=== PATIENT | female | born 1950 | race Caucasian/White ===

== ENCOUNTER → 2016-06-07 | Outpatient (CLI) | payer OTHER, MEDICARE ==
[~2016-06-07] MED LIST: CEFTIN250 MG PO; COZAAR100 MG PO; Flagyl500 M1 IV; HYDROCODONE BIT1 T11 PO; LEVOFLOXACIN500 MG PO; LEVOTHYROXIN0.088 MG PO; MASON NATURAL2000 IU PO; Micro K10 MEQ PO; Ondansetron4 MG PO; PRAVACHOL40 MG PO; VANCOCIN250 MG PO
[2016-06-07 09:14] LABS: EST GLOM FILT AFRICAN AMERICAN > 60 ml/min
== END | disposition home or self-care (01) ==
LOC: CT 08:32 → LAB 08:32 → CT 09:00
PROVIDERS: Radiology Diagnostic Radiology
DX: C54.1 Malignant neoplasm of endometrium (principal); Z90.710 Acquired absence of both cervix and uterus

== ENCOUNTER 2017-10-17 00:04 | Emergency (ER) | payer OTHER, MEDICARE ==
[~2017-10-17] VITALS: Ht 154.9 cm; Wt 55.8 kg
[2017-10-17 00:08] VITALS: BP 173/50
[2017-10-17] MEDS ORDERED: DOXYCYCLINE100 M3 PO (00:12)
== END 2017-10-17 00:18 | disposition home or self-care (01) ==
LOC: ED 00:04
DX: S70.361A Insect bite (nonvenomous), right thigh, initial encounter (principal); W57.XXXA Bitten or stung by nonvenomous insect and other nonvenomous arthropods, initial encounter; Y93.89 Activity, other specified; Y92.89 Other specified places as the place of occurrence of the external cause; Y99.8 Other external cause status

== ENCOUNTER → 2020-04-05 | Outpatient (CLI) | payer OTHER, MEDICARE ==
[~2020-04-05] MED LIST changes: +DOXYCYCLINE100 M3 PO
[2020-04-05 10:35] LABS: ALBUMIN 3.9 gm/dl (3.1-4.5); ALKALINE PHOSPHATASE 93 U/L (45-117); BASO % 0.4 % (0.0-1.0); BUN 12 mg/dl (7-24); CHLORIDE 108 mmol/L (98-107); CREATININE 0.93 mg/dL (0.55-1.02); EOS # 0.1 10*3/uL (0.0-0.4); EOS % 2.5 % (1.0-4.0); LYMPH # 1.8 10*3/uL (1.3-4.4); LYMPH % 35.3 % (27.0-41.0); MEAN CELL VOLUME 92.1 fl (81.0-99.0); MEAN CORPUSCULAR HGB 29.7 pg (27.0-31.0); MEAN CORPUSCULAR HGB CONC 32.3 g/dl (33.0-37.0); MONO # 0.6 10*3/uL (0.1-1.0); MONO % 10.7 % (3.0-9.0); NEUT # 2.6 10*3/uL (2.3-7.9); NEUT % 50.9 % (47.0-73.0); PLATELET COUNT AUTOMATED 241 10*3/uL (130-400); POTASSIUM 4.1 mmol/L (3.5-5.1); RED BLOOD COUNT 4.78 10*6/uL (4.10-5.10); RED CELL DISTRI WIDTH 12.2 % (0-14.5); SGOT/AST 20 IU/L (3-35); SGPT/ALT 23 U/L (12-78); SODIUM 140 mmol/L (136-145); TOTAL PROTEIN 7.7 gm/dL (6.4-8.2); WHITE BLOOD COUNT 5.2 10*3/uL (4.8-10.8)
== END | disposition home or self-care (01) ==
LOC: LAB 09:43
PROVIDERS: ATTEND Physician Assistant Medical
DX: Z92.21 Personal history of antineoplastic chemotherapy (principal); Z92.3 Personal history of irradiation

== ENCOUNTER → 2020-04-07 | Outpatient (CLI) | payer OTHER, MEDICARE | END | disposition home or self-care (01) | LOC: CT 00:28 | PROVIDERS: ATTEND Physician Assistant Medical | DX: C54.1 Malignant neoplasm of endometrium (principal); K76.89 Other specified diseases of liver; Z98.890 Other specified postprocedural states ==

== ENCOUNTER → 2020-10-04 | Outpatient (CLI) | payer OTHER, MEDICARE | END | disposition home or self-care (01) | LOC: RAD 00:09 | PROVIDERS: ATTEND Physician Assistant | DX: Z13.820 Encounter for screening for osteoporosis (principal); F32.89 Other specified depressive episodes; Z78.0 Asymptomatic menopausal state ==

== ENCOUNTER → 2021-03-28 | Outpatient (CLI) | payer OTHER, MEDICARE | END | disposition home or self-care (01) | LOC: MAMMO 14:35 | PROVIDERS: ATTEND Physician Assistant | DX: Z12.31 Encounter for screening mammogram for malignant neoplasm of breast (principal) ==

== ENCOUNTER 2021-04-08 10:46 | Emergency (ER) | payer OTHER, MEDICARE ==
[~2021-04-08] VITALS: Ht 157.4 cm; Wt 55.8 kg
[2021-04-08 11:01] VITALS: BP 181/90
== END 2021-04-08 13:10 | disposition home or self-care (01) ==
LOC: ED 10:46
DX: M71.22 Synovial cyst of popliteal space [Baker], left knee (principal); Z79.899 Other long term (current) drug therapy

== ENCOUNTER → 2021-04-19 | Outpatient (CLI) | payer OTHER, MEDICARE ==
[2021-04-19 11:13] LABS: BASO % 0.4 % (0.0-1.0); EOS # 0.1 10*3/uL (0.0-0.4); EOS % 2.5 % (1.0-4.0); HEMATOCRIT 43.1 % (37.0-47.0); LYMPH # 1.7 10*3/uL (1.3-4.4); LYMPH % 32.4 % (27.0-41.0); MEAN CELL VOLUME 89.8 fl (81.0-99.0); MEAN CORPUSCULAR HGB 29.8 pg (27.0-31.0); MEAN CORPUSCULAR HGB CONC 33.2 g/dl (33.0-37.0); MEAN PLATELET VOLUME 8.8 fl (9.6-12.3); MONO # 0.6 10*3/uL (0.1-1.0); MONO % 11.1 % (3.0-9.0); NEUT # 2.7 10*3/uL (2.3-7.9); NEUT % 53.2 % (47.0-73.0); PLATELET COUNT AUTOMATED 252 10*3/uL (130-400); RED CELL DISTRI WIDTH 11.8 % (0-14.5); WHITE BLOOD COUNT 5.1 10*3/uL (4.8-10.8)
[2021-04-19 11:26] LABS: ALBUMIN 3.7 gm/dl (3.1-4.5); ALKALINE PHOSPHATASE 102 U/L (45-117); BUN 13 mg/dl (7-24); CHLORIDE 107 mmol/L (98-107); POTASSIUM 4.3 mmol/L (3.5-5.1); SGOT/AST 21 IU/L (3-35); SGPT/ALT 30 U/L (12-78); SODIUM 140 mmol/L (136-145); TOTAL PROTEIN 7.9 gm/dL (6.4-8.2)
== END | disposition home or self-care (01) ==
LOC: LAB 10:55 → CT 11:00
PROVIDERS: ATTEND Physician Assistant Medical
DX: Z08 Encounter for follow-up examination after completed treatment for malignant neoplasm (principal); K57.30 Diverticulosis of large intestine without perforation or abscess without bleeding; Z85.42 Personal history of malignant neoplasm of other parts of uterus; Z92.21 Personal history of antineoplastic chemotherapy

== ENCOUNTER → 2022-06-14 | Outpatient (CLI) | payer MEDICARE | END | disposition home or self-care (01) | LOC: CT 09:58 | PROVIDERS: ATTEND Obstetrics & Gynecology Gynecologic Oncology | DX: Z08 Encounter for follow-up examination after completed treatment for malignant neoplasm (principal); K57.32 Diverticulitis of large intestine without perforation or abscess without bleeding; N89.5 Stricture and atresia of vagina; Z92.21 Personal history of antineoplastic chemotherapy; Z85.42 Personal history of malignant neoplasm of other parts of uterus; Z92.3 Personal history of irradiation ==

== ENCOUNTER → 2023-06-07 | Outpatient (CLI) | payer MEDICARE, OTHER | END | disposition home or self-care (01) | LOC: CT 03:09 | PROVIDERS: ATTEND Physician Assistant | DX: Z08 Encounter for follow-up examination after completed treatment for malignant neoplasm (principal); C54.1 Malignant neoplasm of endometrium; K57.30 Diverticulosis of large intestine without perforation or abscess without bleeding; Z85.42 Personal history of malignant neoplasm of other parts of uterus ==

== ENCOUNTER → 2023-10-17 | Outpatient (CLI) | payer MEDICARE, OTHER | END | disposition home or self-care (01) | LOC: MAMMO 10-10 11:30 | PROVIDERS: ATTEND Physician Assistant | DX: Z12.31 Encounter for screening mammogram for malignant neoplasm of breast (principal); N64.89 Other specified disorders of breast ==

== ENCOUNTER → 2024-06-10 | Outpatient (CLI) | payer MEDICARE, OTHER ==
[~2024-06-10] MED LIST changes: +IOHEXOL 300 MG/ML 100 ML VIAL IV ONE
== END | disposition home or self-care (01) ==
LOC: CT 00:03
PROVIDERS: ATTEND Physician Assistant
DX: Z08 Encounter for follow-up examination after completed treatment for malignant neoplasm (principal); K76.89 Other specified diseases of liver; C54.1 Malignant neoplasm of endometrium; Z85.42 Personal history of malignant neoplasm of other parts of uterus; Z98.890 Other specified postprocedural states

== ENCOUNTER → 2024-10-19 | Outpatient (CLI) | payer MEDICARE, OTHER ==
[~2024-10-19] MED LIST changes: -IOHEXOL 300 MG/ML 100 ML VIAL IV ONE
== END | disposition home or self-care (01) ==
LOC: MAMMO 10-05 11:30
PROVIDERS: ATTEND Physician Assistant
DX: Z12.31 Encounter for screening mammogram for malignant neoplasm of breast (principal); R92.323 Mammographic fibroglandular density, bilateral breasts

== ENCOUNTER → 2025-04-12 | Outpatient (CLI) | payer MEDICARE, OTHER | END | disposition home or self-care (01) | LOC: RAD 01:21 | PROVIDERS: ATTEND Physician Assistant | DX: M85.851 Other specified disorders of bone density and structure, right thigh (principal) ==

== ENCOUNTER → 2025-04-16 | Outpatient (CLI) | payer MEDICARE, OTHER ==
[~2025-04-16] MED LIST changes: +IOHEXOL 300 MG/ML 100 ML VIAL IV ONE; +IOHEXOL 300 MG/ML 100 ML VIAL ONE
== END | disposition home or self-care (01) ==
LOC: CT 03:36
PROVIDERS: ATTEND Physician Assistant
DX: C54.1 Malignant neoplasm of endometrium (principal)